=== PATIENT | female | born 1975 | race Caucasian/White ===

== ENCOUNTER → 2018-10-01 15:26 | Outpatient (CLI) | payer OTHER, SELFPAY ==
[2018-10-01 16:14] LABS: Add Manual Diff / Slide Review NO; Basophils Absolute Auto 0 /uL (0-100); Basophils Percent Auto 0.4 % (0-2); Eosinophils Absolute Auto 200 /uL (0-450); Eosinophils Percent Auto 1.8 % (2-4); Hematocrit 43.4 % (36-46); Hemoglobin 14.7 g/dL (12.0-16.0); Lymphocytes Absolute Auto 2900 /uL (1100-4500); Lymphocytes Percent Auto 31.5 % (25-40); Mean Corpuscular HGB Conc 33.8 % (30-36); Mean Corpuscular Hemoglobin 29.9 PG (26-34); Mean Corpuscular Volume 88.6 fL (80-100); Monocytes Absolute Auto 500 /uL (0-900); Monocytes Percent Auto 5.1 % (3-14); Neutrophils Absolute Auto 5600 /uL (1500-7000); Neutrophils Percent Auto 61.2 % (50-75); Platelet Count 280 X10^3/uL (150-400); Red Cell Distribution Width 12.7 % (11.6-14.8); White Blood Cell Count 9.1 X10^3/uL (4.5-11.0)
[2018-10-01 16:24] LABS: Hemoglobin A1C% w Est Avg Glu 5.2 % (4.0-6.0)
[2018-10-01 16:28] LABS: Alanine Aminotransferase 26 IU/L (9-52); Albumin 4.5 g/dL (3.5-5.0); Albumin Globulin Ratio 1.5 (1.0-2.8); Alkaline Phosphatase 45 U/L (38-126); Aspartate Aminotransferase 18 IU/L (14-36); BUN Creatinine Ratio 18.3 (6-22); Bilirubin Total 0.2 mg/dL (0.2-1.3); Blood Urea Nitrogen 11 mg/dL (7-17); Calcium 9.1 mg/dL (8.4-10.2); Carbon Dioxide 26 mmol/L (22-32); Chloride 102 mmol/L (98-107); Cholesterol 180 mg/dL (140-199); Estimated Glomerular Filt Rate > 60.0 mL/min (>60); Glucose 85 mg/dL (70-100); HDL Cholesterol 68 mg/dL (40-60); HEMOLYSIS < 15 (0-50); LDL Cholesterol Calculated 84 mg/dL (<100); Potassium 3.7 mmol/L (3.4-5.1); Sodium 138 mmol/L (137-145); Total Protein 7.5 g/dL (6.3-8.2); Triglycerides 139 mg/dL (35-150)
== END ==
PROVIDERS: PCP Family Medicine; Visit Provider Family Medicine
DX: R00.2 Palpitations (principal)
CPT/HCPCS: 36415; 80053; 80061; 83036; 84443; 85025

== ENCOUNTER → 2018-10-24 07:42 | Outpatient (CLI) | payer OTHER, SELFPAY ==
--- NOTE | 2018-10-24 07:43 | DI.ECHO.S_ITS ---
[facility] +---------+ : : [address] : : : : [id number] : : : : Phone: [phone]+ Echocardiogram Report + + :Name: SOBIA BENZ Study Date: 10/24/2018 Height: 66 in : :[facility] Weight: 155 lb: : Gender: Female BSA: 1.8 m2 : :: 1975 Age: 43 yrs BP: 89/60 mmHg: :Reason For Study: Palpitations : : Performed By: Niya Inman : :Referring: CLAYTON SANTANA : + + Interpretation Summary Borderline right ventricular enlargement. The right atrium is mildly dilated. Low normal LV systolic function. No hemodynamically significant valvular abnormalities. No prior echo for comparison. For accurate measurement of RV size and function, a cardiac MRI is recommended. Procedure: A two-dimensional transthoracic echocardiogram with color flow and Doppler was performed. The study quality was technically excellent. Most of the acoustic windows were suboptimal, but the best imaging was obtained from the subcostal window. The patient was in normal sinus rhythm during the exam. Left Ventricle: The left ventricle is normal in size. There is normal left ventricular wall thickness. The ejection fraction is estimated to be 50-55%. Diastolic function could not be accurately assessed due to contradictory data. Right Ventricle: Borderline right ventricular enlargement. Grossly normal systolic function. The objective data for RV systolic function were not obtained on this study. The apex is questionable. Atria: The left atrial size is normal. The right atrium is mildly dilated. Mitral Valve: The mitral valve leaflets appear borderline thickened, but open well. The mitral valve leaflets appear to open well. There is no mitral valve stenosis. There is trace mitral regurgitation. Aortic Valve: The aortic valve is trileaflet. The aortic valve opens well. No aortic regurgitation is present. Tricuspid Valve: The tricuspid valve is normal in structure and function. There is a trace or physiologic amount of tricuspid regurgitation. Pulmonic Valve: The pulmonic valve is normal in structure and function. There is trace pulmonic regurgitation. Great Vessels: The aortic root is borderline dilated. The ascending aorta is normal in size. The aortic arch is normal in size. The IVC is of normal diameter and collapses greater than 50% with a sniff. This suggests a low right atrial pressure of 3 mm Hg. Pericardium/ Pleura There is no pericardial effusion. There is no pleural effusion. MMode/2D Measurements & Calculations LVIDd: 4.8 cm Ao root diam: 3.8 cm LVIDs: 3.6 cm Aortic Jxn: 2.9 cm FS: 24.3 % asc Aorta Diam: 2.8 cm EPSS: 0.40 cm Ao Arch Diam (Prox Trans): 2.4 cm IVSd: 1.0 cm LVPWd: 0.89 cm LV vee. diameter/BSA (cm/m^2): 2.7 LV sys. diameter/BSA (cm/m^2): 2.0 LA dimension: 2.9 cm RA long axis: 4.9 cm LA A2 area: 12.8 cm2 RA area: 18.3 cm2 LA A4 area: 18.7 cm2 RA vol: 58.6 ml LA length (vol): 4.6 cm RA : 32.6 ml/m2 LA vol: 43.7 ml IVC diam: 1.8 cm LA vol index: 24.3 ml/m2 RVDd major: 5.5 cm RVD1 (basal): 3.8 cm LVAd ap4: 27.4 cm2 RVD2 (mid): 3.6 cm LVAs ap4: 17.4 cm2 LVLs ap4: 6.1 cm Doppler Measurements & Calculations LVOT Max Jatin: 111.5 cm/sec MV E max jatin: 57.6 cm/sec LV V1 max P.0 mmHg MV A max jatin: 58.1 cm/sec LV V1 VTI: 23.3 cm MV E/A: 0.99 Med Peak E' Jtain: 6.2 cm/sec E/E' med: 9.3 Lat Peak E' Jatin: 4.4 cm/sec E/E' lat: 13.0 E/e' average: 11.2 MV dec time: 0.24 sec MV P1/2t: 72.7 msec TR max jatin: 184.9 cm/sec MV P1/2t max jatin: 57.4 cm/sec TR max P.7 mmHg MVA(P1/2t): 3.0 cm2 PA V2 max: 53.0 cm/sec PA V2 mean: 37.1 cm/sec PA mean P.63 mmHg PA Accel Time: 0.15 sec Electronically signed by: Zane Mcfarland M.D. on Reading Physician:10/25/2018 08:02 PM
== END ==
PROVIDERS: PCP Family Medicine; Visit Provider Family Medicine
DX: R00.2 Palpitations (principal); R00.0 Tachycardia, unspecified
CPT/HCPCS: 93306

== ENCOUNTER → 2018-10-29 09:18 | Outpatient (CLI) | payer OTHER, SELFPAY ==
--- NOTE | 2018-11-21 13:27 | P.HOLT.S_ITS ---
Quality Assurance Director Report Referral & Results Date Patient Seen: 10/29/18 Requesting provider: Leonor Pyle Indication: Tachycardia Duration of monitoring (days): 13 Diary information: There were 4 patient diary entries associated with sinus rhythm and PACs There were 4 patient triggered events associated with PACs and sinus rhythm Data: Minimum heart rate identified was 51 beats per minute at 03:15 on 11/05/2018 Maximum sinus heart rate was 179 beats per minute at 09:23 on 11/08/2018 Maximum overall heart rate was 210 beats per minute at 01:40 on 11/07/2018 during a 17 beat run of ventricular tachycardia Less than 1% of identified beats rather ventricular supraventricular in origin Patient had a single run of 17 beats of ventricular tachycardia as above presumably while sleeping given the time of day that it occurred There is also some atrial tachycardia or wandering atrial pacemaker present as well. Impression: The patient with single run of ventricular tachycardia as above. However no other significant dysrhythmias present Clinical correlation suggested. Cardiology consultation probably warranted given the ventricular tachycardia. This is discussed with patient's referring physician in person.
== END ==
PROVIDERS: PCP Family Medicine; Visit Provider Family Medicine
DX: R00.0 Tachycardia, unspecified (principal)
CPT/HCPCS: 0296T; 0298T

== ENCOUNTER → 2018-12-26 11:28 | Outpatient (CLI) | payer OTHER, SELFPAY ==
--- NOTE | 2018-12-26 11:30 | DI.MG.S_ITS ---
BILATERAL DIGITAL SCREENING MAMMOGRAM 3D/2D WITH CAD: 12/26/2018 CLINICAL: Baseline exam. Routine screening. No prior exams were available for comparison. The tissue of both breasts is heterogeneously dense. This may lower the sensitivity of mammography. Current study was also evaluated with a Computer Aided Detection (CAD) system. No significant masses, calcifications, or other findings are seen in either breast. IMPRESSION: NEGATIVE There is no mammographic evidence of malignancy. A 1 year screening mammogram is recommended. This exam was interpreted at Station ID: [id number]. NOTE: For mammograms, a report in lay terms will be sent to the patient. Approximately 15% of breast malignancies will not be visualized mammographically. In the management of a palpable breast mass, a negative mammogram must not discourage biopsy of a clinically suspicious lesion. Electronically Signed By: Pato diaz/chelsy:12/26/2018 18:31:03 letter sent: Normal Exam ACR BI-RADS Category 1: Negative 3341F
== END ==
PROVIDERS: PCP Family Medicine; Visit Provider Family Medicine
DX: Z12.31 Encounter for screening mammogram for malignant neoplasm of breast (principal)
CPT/HCPCS: 77063; 77067

== ENCOUNTER → 2021-03-01 07:14 | Outpatient (CLI) | payer OTHER, SELFPAY ==
[2021-03-01 08:07] LABS: Add Manual Diff / Slide Review NO; Basophils Absolute Auto 0 /uL (0-100); Basophils Percent Auto 0.7 % (0-2); Eosinophils Absolute Auto 300 /uL (0-450); Eosinophils Percent Auto 5.1 % (2-4); Hematocrit 43.9 % (36-46); Hemoglobin 14.6 g/dL (12.0-16.0); Lymphocytes Absolute Auto 1700 /uL (1100-4500); Lymphocytes Percent Auto 33.2 % (25-40); Mean Corpuscular HGB Conc 33.3 % (30-36); Mean Corpuscular Volume 90.1 fL (80-100); Monocytes Absolute Auto 400 /uL (0-900); Monocytes Percent Auto 8.1 % (3-14); Neutrophils Absolute Auto 2700 /uL (1500-7000); Neutrophils Percent Auto 52.9 % (50-75); Platelet Count 265 X10^3/uL (150-400); Red Blood Cell Count 4.87 X10^6/uL (4.0-5.2); Red Cell Distribution Width 12.4 % (11.6-14.8); White Blood Cell Count 5.1 X10^3/uL (4.5-11.0)
[2021-03-01 08:25] LABS: Alanine Aminotransferase 20 IU/L (<35); Albumin 4.1 g/dL (3.5-5.0); Albumin Globulin Ratio 1.5 (1.0-2.8); Alkaline Phosphatase 43 U/L (38-126); Aspartate Aminotransferase 25 IU/L (14-36); BUN Creatinine Ratio 16.9 (6-22); Bilirubin Total 0.5 mg/dL (0.2-1.3); Blood Urea Nitrogen 10 mg/dL (7-17); Calcium 9.1 mg/dL (8.4-10.2); Carbon Dioxide 22 mmol/L (22-32); Chloride 106 mmol/L (98-107); Cholesterol 179 mg/dL (140-199); Estimated Glomerular Filt Rate > 60.0 mL/min (>60); Globulin 2.7 g/dL (1.7-4.1); Glucose 82 mg/dL (70-100); HDL Cholesterol 66 mg/dL (40-60); HEMOLYSIS < 15 (0-50); LDL Cholesterol Calculated 83 mg/dL (<100); Sodium 135 mmol/L (137-145); Total Protein 6.8 g/dL (6.3-8.2); Triglycerides 151 mg/dL (35-150)
== END ==
PROVIDERS: PCP Family Medicine; Referring Provider Registered Nurse; Visit Provider Registered Nurse
DX: Z30.41 Encounter for surveillance of contraceptive pills (principal); Z79.899 Other long term (current) drug therapy; Z82.49 Family history of ischemic heart disease and other diseases of the circulatory system
CPT/HCPCS: 36415; 80053; 80061; 85025

== ENCOUNTER → 2021-05-23 13:32 | Outpatient (CLI) | payer OTHER, SELFPAY ==
--- NOTE | 2021-05-23 13:33 | DI.MG.S_ITS ---
BILATERAL DIGITAL SCREENING MAMMOGRAM 3D/2D WITH CAD: 05/23/2021 CLINICAL: Routine screening. Comparison is made to exam dated: 12/26/2018 [facility] [place]. The tissue of both breasts is heterogeneously dense. This may lower the sensitivity of mammography. Current study was also evaluated with a Computer Aided Detection (CAD) system. No significant masses, calcifications, or other findings are seen in either breast. There has been no significant interval change. IMPRESSION: NEGATIVE There is no mammographic evidence of malignancy. A 1 year screening mammogram is recommended. This exam was interpreted at Station ID: [id number]. NOTE: For mammograms, a report in lay terms will be sent to the patient. Approximately 15% of breast malignancies will not be visualized mammographically. In the management of a palpable breast mass, a negative mammogram must not discourage biopsy of a clinically suspicious lesion. Electronically Signed By: Moira george/chelsy:05/23/2021 14:32:23 letter sent: Normal Exam ACR BI-RADS Category 1: Negative [id number]
== END ==
PROVIDERS: PCP Family Medicine; Referring Provider Family Medicine; Visit Provider Family Medicine
DX: Z12.31 Encounter for screening mammogram for malignant neoplasm of breast (principal)
CPT/HCPCS: 77063; 77067

== ENCOUNTER → 2022-05-14 16:09 | Outpatient (CLI) | payer OTHER, SELFPAY ==
[2022-05-14 18:30] LABS: Add Manual Diff / Slide Review NO; Basophils Absolute Auto 0 /uL (0-100); Basophils Percent Auto 0.3 % (0-2); Eosinophils Absolute Auto 100 /uL (0-450); Eosinophils Percent Auto 1.4 % (2-4); Hematocrit 42.2 % (36-46); Hemoglobin 14.2 g/dL (12.0-16.0); Lymphocytes Absolute Auto 2300 /uL (1100-4500); Lymphocytes Percent Auto 28.8 % (25-40); Mean Corpuscular HGB Conc 33.6 % (30-36); Mean Corpuscular Hemoglobin 30.5 PG (26-34); Mean Corpuscular Volume 90.7 fL (80-100); Monocytes Absolute Auto 400 /uL (0-900); Neutrophils Absolute Auto 5200 /uL (1500-7000); Neutrophils Percent Auto 64.5 % (50-75); Platelet Count 265 X10^3/uL (150-400); Red Blood Cell Count 4.65 X10^6/uL (4.0-5.2)
[2022-05-14 18:47] LABS: Alanine Aminotransferase 21 IU/L (<35); Albumin 4.1 g/dL (3.5-5.0); Albumin Globulin Ratio 1.3 (1.0-2.8); Alkaline Phosphatase 46 U/L (38-126); Aspartate Aminotransferase 25 IU/L (14-36); BUN Creatinine Ratio 13.6 (6-22); Bilirubin Total 0.4 mg/dL (0.2-1.3); Blood Urea Nitrogen 9 mg/dL (7-17); Carbon Dioxide 23 mmol/L (22-32); Chloride 100 mmol/L (98-107); Cholesterol 177 mg/dL (140-199); Estimated Glomerular Filt Rate > 60 mL/min (>60); Globulin 3.1 g/dL (1.7-4.1); Glucose 75 mg/dL (70-100); HDL Cholesterol 69 mg/dL (40-60); HEMOLYSIS < 15 (0-50); LDL Cholesterol Calculated 90 mg/dL (<100); Potassium 3.3 mmol/L (3.4-5.1); Sodium 136 mmol/L (137-145); Total Protein 7.2 g/dL (6.3-8.2); Triglycerides 88 mg/dL (35-150)
[2022-05-14 19:06] LABS: Calcium 8.7 mg/dL (8.4-10.2)
[2022-05-14 19:36] LABS: TSH w/ Reflex to FT4 1.34 uIU/mL (0.47-4.68)
== END ==
PROVIDERS: PCP Family Medicine; Referring Provider Family Medicine; Visit Provider Family Medicine
DX: Z00.00 Encounter for general adult medical examination without abnormal findings (principal); G43.009 Migraine without aura, not intractable, without status migrainosus; D48.5 Neoplasm of uncertain behavior of skin
CPT/HCPCS: 36415; 80053; 80061; 84443; 85025

== ENCOUNTER → 2022-05-24 16:17 | Outpatient (CLI) | payer OTHER, SELFPAY ==
--- NOTE | 2022-05-24 16:22 | DI.MG.S_ITS ---
BILATERAL DIGITAL SCREENING MAMMOGRAM 3D/2D WITH CAD: 05/24/2022 CLINICAL: Routine screening. Comparison is made to exams dated: 05/23/2021 mammogram and 12/26/2018 mammogram - [facility]. Both breasts are heterogeneously dense, which may obscure small masses (category c / 51-75% glandular tissue). Current study was also evaluated with a Computer Aided Detection (CAD) system. No significant masses, calcifications, or other findings are seen in either breast. There has been no significant interval change. IMPRESSION: NEGATIVE There is no mammographic evidence of malignancy. A 1 year screening mammogram is recommended. Based on the Tyrer Cuzick model (a risk assessment model) the patient's lifetime risk is 12.7% and her 10 year risk is 2.5%. According to the ACR, ACS, and NCCN guidelines, an annual breast MRI exam along with mammogram is recommended if the patient's lifetime risk is 20% or greater. This exam was interpreted at Station ID: [id number]. NOTE: For mammograms, a report in lay terms will be sent to the patient. Approximately 15% of breast malignancies will not be visualized mammographically. In the management of a palpable breast mass, a negative mammogram must not discourage biopsy of a clinically suspicious lesion. Electronically Signed By: Robert mtz/chelsy:05/25/2022 08:59:32 letter sent: Normal Exam ACR BI-RADS Category 1: Negative [id number]
== END ==
PROVIDERS: PCP Family Medicine; Referring Provider Family Medicine; Visit Provider Family Medicine
DX: Z12.31 Encounter for screening mammogram for malignant neoplasm of breast (principal)
CPT/HCPCS: 77063; 77067

== ENCOUNTER → 2023-04-05 07:24 | Outpatient (CLI) | payer OTHER, SELFPAY ==
[2023-04-05 08:28] LABS: Alanine Aminotransferase 27 IU/L (<35); Albumin 4.2 g/dL (3.5-5.0); Albumin Globulin Ratio 1.6 (1.0-2.8); Alkaline Phosphatase 37 U/L (38-126); Aspartate Aminotransferase 22 IU/L (14-36); BUN Creatinine Ratio 21.2 (6-22); Bilirubin Total 0.6 mg/dL (0.2-1.3); Blood Urea Nitrogen 14 mg/dL (7-17); Calcium 9.3 mg/dL (8.4-10.2); Carbon Dioxide 26 mmol/L (22-32); Chloride 105 mmol/L (98-107); Estimated Glomerular Filt Rate > 60 mL/min (>60); Globulin 2.6 g/dL (1.7-4.1); Glucose 92 mg/dL (70-100); HEMOLYSIS < 15 (0-50); Sodium 136 mmol/L (137-145); Total Protein 6.8 g/dL (6.3-8.2)
== END ==
PROVIDERS: PCP Family Medicine; Referring Provider Family Medicine; Visit Provider Family Medicine
DX: E87.1 Hypo-osmolality and hyponatremia (principal)
CPT/HCPCS: 36415; 80053

== ENCOUNTER → 2023-05-06 07:10 | Outpatient (CLI) | payer OTHER, SELFPAY ==
[2023-05-06 08:18] LABS: Add Manual Diff / Slide Review NO; Basophils Absolute Auto 0 /uL (0-100); Basophils Percent Auto 0.8 % (0-2); Eosinophils Absolute Auto 100 /uL (0-450); Eosinophils Percent Auto 3.5 % (2-4); Hematocrit 40.7 % (36-46); Hemoglobin 13.8 g/dL (12.0-16.0); Lymphocytes Absolute Auto 1800 /uL (1100-4500); Lymphocytes Percent Auto 43.5 % (25-40); Mean Corpuscular HGB Conc 33.9 % (30-36); Mean Corpuscular Hemoglobin 30.7 PG (26-34); Mean Corpuscular Volume 90.6 fL (80-100); Monocytes Absolute Auto 300 /uL (0-900); Monocytes Percent Auto 8.2 % (3-14); Neutrophils Absolute Auto 1800 /uL (1500-7000); Platelet Count 255 X10^3/uL (150-400); Red Blood Cell Count 4.49 X10^6/uL (4.0-5.2); Red Cell Distribution Width 12.2 % (11.6-14.8)
[2023-05-06 08:48] LABS: Alanine Aminotransferase 23 IU/L (<35); Albumin 4.1 g/dL (3.5-5.0); Albumin Globulin Ratio 1.6 (1.0-2.8); Alkaline Phosphatase 35 U/L (38-126); Aspartate Aminotransferase 22 IU/L (14-36); BUN Creatinine Ratio 30.2 (6-22); Bilirubin Total 0.4 mg/dL (0.2-1.3); Blood Urea Nitrogen 19 mg/dL (7-17); Calcium 9.1 mg/dL (8.4-10.2); Carbon Dioxide 26 mmol/L (22-32); Chloride 105 mmol/L (98-107); Cholesterol 180 mg/dL (140-199); Estimated Glomerular Filt Rate > 60 mL/min (>60); Globulin 2.5 g/dL (1.7-4.1); Glucose 98 mg/dL (70-100); HDL Cholesterol 67 mg/dL (40-60); HEMOLYSIS < 15 (0-50); LDL Cholesterol Calculated 100 mg/dL (<100); Potassium 4.2 mmol/L (3.4-5.1); Sodium 136 mmol/L (137-145); Total Protein 6.6 g/dL (6.3-8.2); Triglycerides 67 mg/dL (35-150)
[2023-05-06 08:58] LABS: TSH w/ Reflex to FT4 2.84 uIU/mL (0.47-4.68)
[2023-05-06 09:28] LABS: Follicle Stimulating Hormone 17.4 mIU/mL
[2023-05-06 09:34] LABS: Vitamin D 25 Hydroxy (D3) 70.9 ng/mL (30.0-100.0)
[2023-05-06 09:35] LABS: Vitamin B12 664 pg/mL (239-931)
[2023-05-09 23:49] LABS: Estrogen 259 pg/mL (.)
[2023-05-16 14:35] LABS: % Free Progesterone 2.8 % (.); Free Progesterone 0.62 ng/dL (.); Progesterone, Serum 22 ng/dL (.)
== END ==
PROVIDERS: PCP Family Medicine; Referring Provider Family Medicine; Visit Provider Family Medicine
DX: E87.1 Hypo-osmolality and hyponatremia (principal); G43.009 Migraine without aura, not intractable, without status migrainosus; R53.83 Other fatigue; G43.109 Migraine with aura, not intractable, without status migrainosus; R87.619 Unspecified abnormal cytological findings in specimens from cervix uteri
CPT/HCPCS: 36415; 80053; 80061; 82306; 82607; 82672; 83001; 84144; 84443; 84999; 85025

== ENCOUNTER → 2023-07-04 12:25 | Outpatient (CLI) | payer OTHER, SELFPAY | PROVIDERS: PCP Family Medicine; Visit Provider Physician Assistant | DX: R30.0 Dysuria (principal) | CPT/HCPCS: 87086; 87210 ==

== ENCOUNTER 2023-09-25 11:54 | Emergency (ER) | payer OTHER, SELFPAY ==
[2023-09-25] VITALS (8 sets, daily range): BP systolic 115–141; BP diastolic 66–95; PULSE 63–77; RESP 12–19; TEMP 37.1; O2SAT 95–98; BMI 25.0
[2023-09-25 12:49] LABS: Add Manual Diff / Slide Review NO; Basophils Absolute Auto 0 /uL (0-100); Basophils Percent Auto 0.7 % (0-2); Eosinophils Absolute Auto 100 /uL (0-450); Eosinophils Percent Auto 1.8 % (2-4); Hematocrit 39.9 % (36-46); Hemoglobin 13.8 g/dL (12.0-16.0); Lymphocytes Absolute Auto 2000 /uL (1100-4500); Lymphocytes Percent Auto 36.3 % (25-40); Mean Corpuscular HGB Conc 34.5 % (30-36); Mean Corpuscular Hemoglobin 30.9 PG (26-34); Mean Corpuscular Volume 89.5 fL (80-100); Monocytes Absolute Auto 400 /uL (0-900); Monocytes Percent Auto 6.7 % (3-14); Neutrophils Absolute Auto 3000 /uL (1500-7000); Neutrophils Percent Auto 54.5 % (50-75); Platelet Count 279 X10^3/uL (150-400); Red Blood Cell Count 4.46 X10^6/uL (4.0-5.2); Red Cell Distribution Width 12.4 % (11.6-14.8); White Blood Cell Count 5.6 X10^3/uL (4.5-11.0)
[2023-09-25 12:54] LABS: Alanine Aminotransferase 16 IU/L (<35); Albumin 3.9 g/dL (3.5-5.0); Albumin Globulin Ratio 1.3 (1.0-2.8); Alkaline Phosphatase 39 U/L (38-126); Aspartate Aminotransferase 23 IU/L (14-36); BUN Creatinine Ratio 32.7 (6-22); Bilirubin Total 0.5 mg/dL (0.2-1.3); Blood Urea Nitrogen 17 mg/dL (7-17); Calcium 8.9 mg/dL (8.4-10.2); Carbon Dioxide 24 mmol/L (22-32); Chloride 107 mmol/L (98-107); Estimated Glomerular Filt Rate > 60 mL/min (>60); Glucose 94 mg/dL (70-100); HEMOLYSIS 20 (0-50); Potassium 3.5 mmol/L (3.4-5.1); Sodium 136 mmol/L (137-145); Total Protein 6.9 g/dL (6.3-8.2)
--- NOTE | 2023-09-25 13:19 | PC.NURSE ---
Pt able to follow commands, smile evenly, states that prisms and floaters have gotten better. Upper and lower extremity strength equal. Able to overcome gravity, scratch test passed, and able to track finger to nose test
--- NOTE | 2023-09-25 13:43 | ED.GENADULT ---
HPI - General Adult General Chief complaint: Eye Problems Stated complaint: sudden change in vision Time Seen by Provider: 09/25/23 13:42 History of Present Illness HPI narrative: 48-year-old woman history of migraines likely perimenopausal who presents with acute onset of visual prisms and acute ocular changes not associated with headache or nausea. She was at work and began noticing light flashes yesterday this lasted for about half an hour. Today she noted prisms in an arc laterally both eyes. Not actually loss of vision, no headache or nausea. Was told to go home from work contacted her doctor who recommended an emergency department evaluation. Symptoms today lasted approximately an hour and a half and by the time my exam she is entirely back to her baseline with no complaints. She has not had recent chest pain, palpitations, abdominal pain diarrhea. With these visual changes she has not had the usual migraine type headache or nausea. There has been no fevers or cough. Related Data Previous Rx's Medication Instructions Recorded ondansetron 4 mg disintegrating 4 mg PO Q8H PRN nausea and 05/02/23 tablet vomiting #20 tabs rizatriptan 5 mg disintegrating See Rx Instructions PO .COMPLEX 05/02/23 tablet #30 tabs metronidazole 500 mg tablet 500 mg PO BID #14 tabs 07/04/23 norgestimate 0.25 mg-ethinyl 1 tab PO DAILY #84 tabs 08/15/23 estradiol 35 mcg tablet Allergies Allergy/AdvReac Type Severity Reaction Status Date / Time Opioids - Morphine Analogues AdvReac Severe Vomiting Verified 07/04/23 12:28 Review of Systems Review of Systems Narrative: Pertinent positive and negative findings as per HPI Patient History Medical History (Updated 09/25/23 @ 15:26 by Gaby Jolley MD) Ocular migraine Migraine headache with aura Oral contraceptive use Medication management Cervical cancer screening AVNRT (AV colleen re-entry tachycardia) Abnormal Pap smear of cervix Family History Mother Cancer Mother Cancer Social History Smoking Status: Never smoker alcohol intake: current (~2 drinks per weekend ) substance use type: does not use Smoking Status: Never smoker alcohol intake frequency: a few times a month Substance Use Type: does not use Exam Initial Vital Signs Initial Vital Signs: Vital Signs Temperature 98.8 F 09/25/23 11:57 Pulse Rate 77 09/25/23 11:57 Respiratory Rate 18 09/25/23 11:57 Blood Pressure 141/95 H 09/25/23 11:57 Pulse Oximetry 98 09/25/23 11:57 Oxygen Delivery Method Room Air 09/25/23 11:57 General: Alert appropriate in no acute distress Respiratory: Able to speak in full sentences, no obvious respiratory distress, no wheezing or rhonchi Cardiac exam is entirely unremarkable Skin: No obvious rashes, warm and dry Neurologic: Grossly intact no obvious asymmetries or abnormalities. No headache, no acute visual changes. Pupils are equal and reactive to light and accommodation Psych: appropriate insight and affect, cooperative Course Orders Ordered: ED Orders 09/25/23 12:33 CMP [Comprehensive Metabolic Panel] Stat Complete Blood Count AUTO DIFF Stat Vital Signs Vital signs: Vital Signs - 8 hr 09/25/23 11:57 09/25/23 12:22 09/25/23 12:22 Temperature 98.8 F Pulse Rate 77 74 Respiratory Rate 18 14 Blood Pressure 141/95 H 125/84 Pulse Oximetry 98 98 Oxygen Delivery Method Room Air 09/25/23 12:30 09/25/23 12:30 Temperature Pulse Rate 74 Respiratory Rate 12 Blood Pressure 134/88 Pulse Oximetry 95 Oxygen Delivery Method Medical Decision Making Lab Data 09/25/23 12:33 09/25/23 12:33 Labs: Lab Results 09/25/23 Range/Units 12:33 WBC 5.6 (4.5-11.0) X10^3/uL RBC 4.46 (4.0-5.2) X10^6/uL Hgb 13.8 (12.0-16.0) g/dL Hct 39.9 (36-46) % MCV 89.5 (80-100) fL MCH 30.9 (26-34) PG MCHC 34.5 (30-36) % RDW 12.4 (11.6-14.8) % Plt Count 279 (150-400) X10^3/uL Neut % (Auto) 54.5 (50-75) % Lymph % (Auto) 36.3 (25-40) % [place] % (Auto) 6.7 (3-14) % Eos % (Auto) 1.8 L (2-4) % Baso % (Auto) 0.7 (0-2) % Neut # (Auto) 3000 (6060-2273) /uL Lymph # (Auto) 2000 (3746-8589) /uL [place] # (Auto) 400 (0-900) /uL Eos # (Auto) 100 (0-450) /uL Baso # (Auto) 0 (0-100) /uL Sodium 136 L (137-145) mmol/L Potassium 3.5 (3.4-5.1) mmol/L Chloride 107 (98-107) mmol/L Carbon Dioxide 24 (22-32) mmol/L BUN 17 (7-17) mg/dL Creatinine 0.52 (0.52-1.04) mg/dL Estimated GFR > 60 (>60) mL/min BUN/Creatinine Ratio 32.7 H (6-22) Glucose 94 (70-100) mg/dL Calcium 8.9 (8.4-10.2) mg/dL Total Bilirubin 0.5 (0.2-1.3) mg/dL AST 23 (14-36) IU/L ALT 16 (<35) IU/L Alkaline Phosphatase 39 (38-126) U/L Total Protein 6.9 (6.3-8.2) g/dL Albumin 3.9 (3.5-5.0) g/dL Globulin 3.0 (1.7-4.1) g/dL Albumin/Globulin Ratio 1.3 (1.0-2.8) MDM Narrative Medical decision making narrative: 48-year-old woman presents with 2 discrete episodes of alf like vision changes. The 1st episode was yesterday lasted approximately 30 minutes. An additional episode today lasting approximately an hour. Neither of these were associated with headache, nausea, visual loss, photophobia or increased sensitivity to smells. She does have a history of migraine and describes this as entirely different. Differential includes ocular migraine, regular migraine, intra-ocular pressure, retinal detachment, stroke. Lab tests today do not suggest infection. Exam is entirely reassuring and she has no symptoms at the time of my exam. We reviewed samples of what other people have described the visual disturbance associated with ocular migraine and she feels that what she experienced is well with in this realm of findings. We talked about the use of Excedrin if the symptoms last long enough to warrant that. Reassurance is given. Questions are answered and she is safe for discharge Discharge Plan Departure Patient Disposition: Home Clinical Impression: Ocular migraine Activity Restrictions/Additional Instructions: Thank you for coming in today Your symptoms, description, the absence of pain in the fairly rapid resolution of symptoms are all very consistent with ocular migraine. This type of migraine typically does not have the pain, nausea, light sensitivity as a standard migraine and typically does not last as long. Usually people will describe light prisms or changes peripherally that resolve over 30 minutes to 4 hours. Your description in your exam do not suggest infection, stroke, retinal abnormalities or other vision threatening concerns that would require urgent intervention You might consider trying Excedrin in the next time you have 1 of these episodes. It may shorten the time of the ocular change from an hour and a half to 20-30 minutes. If you find that you are having numbness, tingling, actual vision loss or other changes you do need to be re-evaluated Prescriptions: No Action metronidazole 500 mg tablet 500 mg PO BID Qty: 14 0RF norgestimate-ethinyl estradiol 0.25-35 mg-mcg tablet 1 tab PO DAILY Qty: 84 0RF Rx Instructions: Take daily around the same time every day rizatriptan 5 mg tablet,disintegrating See Rx Instructions PO .COMPLEX Qty: 30 1RF Rx Instructions: take 1 tablet at onset of headache; if no relief, may repeat 1 tablet after at least 2 hrs PO ondansetron 4 mg tablet,disintegrating 4 mg PO Q8H PRN (Reason: nausea and vomiting) Qty: 20 1RF Referrals: Perez Corrigan MD [Primary Care Provider] - Stand Alone Forms: Patient Portal/API
== END 2023-09-25 15:30 | disposition home or self-care (01) ==
PROVIDERS: Emergency Provider Emergency Medicine; PCP Family Medicine
DX: G43.B0 Ophthalmoplegic migraine, not intractable (principal)
CPT/HCPCS: 36415; 80053; 81003; 81025; 85025; 99283

== ENCOUNTER → 2024-04-02 16:48 | Outpatient (CLI) | payer OTHER, SELFPAY ==
--- NOTE | 2024-04-02 16:49 | DI.MG.S_ITS ---
BILATERAL DIGITAL SCREENING MAMMOGRAM 3D/2D WITH CAD: 04/02/2024 CLINICAL: Routine screening. Comparison is made to exams dated: 05/24/2022 mammogram, 05/23/2021 mammogram, and 12/26/2018 mammogram - [facility]. The breasts are heterogeneously dense, which may obscure small masses (category c / 51-75% glandular tissue). Current study was also evaluated with a Computer Aided Detection (CAD) system. No significant masses, calcifications, or other findings are seen in either breast. There has been no significant interval change. IMPRESSION: NEGATIVE There is no mammographic evidence of malignancy. A 1 year screening mammogram is recommended. Based on the Tyrer Cuzick model (a risk assessment model) the patient's lifetime risk is 13.4% and her 10 year risk is 2.7%. According to the ACR, ACS, and NCCN guidelines, an annual breast MRI exam along with mammogram is recommended if the patient's lifetime risk is 20% or greater. This exam was interpreted at Station ID: [id number]. NOTE: For mammograms, a report in lay terms will be sent to the patient. Approximately 15% of breast malignancies will not be visualized mammographically. In the management of a palpable breast mass, a negative mammogram must not discourage biopsy of a clinically suspicious lesion. Electronically Signed By: Herbert perez/chelsy:04/03/2024 12:30:49 letter sent: Normal Exam ACR BI-RADS Category 1: Negative
== END ==
PROVIDERS: PCP Family Medicine; Referring Provider Family Medicine; Visit Provider Family Medicine
DX: Z12.31 Encounter for screening mammogram for malignant neoplasm of breast (principal); R92.333 Mammographic heterogeneous density, bilateral breasts
CPT/HCPCS: 77063; 77067

== ENCOUNTER → 2024-05-22 07:45 | Outpatient (CLI) | payer OTHER, SELFPAY ==
[2024-05-22 08:26] LABS: Add Manual Diff / Slide Review NO; Basophils Absolute Auto 0 /uL (0-100); Basophils Percent Auto 0.9 % (0-2); Eosinophils Absolute Auto 200 /uL (0-450); Eosinophils Percent Auto 3.2 % (2-4); Hematocrit 43.6 % (36-46); Hemoglobin 14.7 g/dL (12.0-16.0); Lymphocytes Absolute Auto 1800 /uL (1100-4500); Lymphocytes Percent Auto 37.8 % (25-40); Mean Corpuscular HGB Conc 33.7 % (30-36); Mean Corpuscular Hemoglobin 30.3 PG (26-34); Mean Corpuscular Volume 89.8 fL (80-100); Monocytes Absolute Auto 400 /uL (0-900); Neutrophils Absolute Auto 2300 /uL (1500-7000); Neutrophils Percent Auto 49.1 % (50-75); Platelet Count 254 X10^3/uL (150-400); Red Blood Cell Count 4.85 X10^6/uL (4.0-5.2); Red Cell Distribution Width 13.4 % (11.6-14.8); White Blood Cell Count 4.7 X10^3/uL (4.5-11.0)
[2024-05-22 08:39] LABS: Alanine Aminotransferase 29 IU/L (<35); Albumin 4.2 g/dL (3.5-5.0); Albumin Globulin Ratio 1.7 (1.0-2.8); Alkaline Phosphatase 43 U/L (38-126); Aspartate Aminotransferase 26 IU/L (14-36); Bilirubin Total 0.6 mg/dL (0.2-1.3); Blood Urea Nitrogen 17 mg/dL (7-17); Calcium 9.3 mg/dL (8.4-10.2); Carbon Dioxide 22 mmol/L (22-32); Chloride 107 mmol/L (98-107); Cholesterol 178 mg/dL (140-199); Estimated Glomerular Filt Rate > 60 mL/min (>60); Globulin 2.5 g/dL (1.7-4.1); Glucose 94 mg/dL (70-100); HDL Cholesterol 73 mg/dL (40-60); HEMOLYSIS < 15 (0-50); LDL Cholesterol Calculated 91 mg/dL (<100); Potassium 4.1 mmol/L (3.4-5.1); Sodium 137 mmol/L (137-145); Total Protein 6.7 g/dL (6.3-8.2); Triglycerides 70 mg/dL (35-150)
[2024-05-22 08:54] LABS: Vitamin D 25 Hydroxy (D3) 70.7 ng/mL (30.0-100.0)
[2024-05-22 09:07] LABS: TSH w/ Reflex to FT4 1.98 uIU/mL (0.47-4.68)
== END ==
LOC: LAB 07:45
PROVIDERS: PCP Family Medicine; Referring Provider Family Medicine; Visit Provider Family Medicine
DX: E87.1 Hypo-osmolality and hyponatremia (principal); G43.109 Migraine with aura, not intractable, without status migrainosus; R53.82 Chronic fatigue, unspecified
CPT/HCPCS: 36415; 80053; 80061; 82306; 84443; 85025

== ENCOUNTER 2024-07-13 13:59 | Emergency (ER) | payer BC, SELFPAY ==
[2024-07-13 14:18] VITALS: BP 138/60; PULSE 88; RESP 12; TEMP 37; O2SAT 96; BMI 23.5
[2024-07-13 15:21] LABS: Add Manual Diff / Slide Review NO; Basophils Absolute Auto 0 /uL (0-100); Basophils Percent Auto 0.6 % (0-2); Eosinophils Absolute Auto 100 /uL (0-450); Eosinophils Percent Auto 2.3 % (2-4); Hematocrit 42.2 % (36-46); Hemoglobin 14.2 g/dL (12.0-16.0); Lymphocytes Absolute Auto 1800 /uL (1100-4500); Lymphocytes Percent Auto 34.3 % (25-40); Mean Corpuscular HGB Conc 33.6 % (30-36); Mean Corpuscular Hemoglobin 30.1 PG (26-34); Mean Corpuscular Volume 89.5 fL (80-100); Monocytes Absolute Auto 400 /uL (0-900); Monocytes Percent Auto 6.6 % (3-14); Neutrophils Absolute Auto 3000 /uL (1500-7000); Neutrophils Percent Auto 56.2 % (50-75); Platelet Count 302 X10^3/uL (150-400); Red Blood Cell Count 4.71 X10^6/uL (4.0-5.2); Red Cell Distribution Width 12.6 % (11.6-14.8); White Blood Cell Count 5.4 X10^3/uL (4.5-11.0)
--- NOTE | 2024-07-13 15:35 | DI.US.S_ITS ---
PROCEDURE: US PELVIC COMPLETE INDICATIONS: DUB TECHNIQUE: Real-time scanning was performed of the pelvic organs, with image documentation. Additional endovaginal scanning was necessary due to incomplete visualization of the adnexal and endometrial structures by transabdominal scanning. COMPARISON: None. FINDINGS: Uterus: Uterus is retroverted and normal in size at 7.7 x 7.8 x 8.1 cm. The myometrium is heterogeneous. The endometrium measures 7 mm combined thickness. Right posterior intramural fibroid measuring 7.1 x 4.4 x 4.7 cm. Ovaries: The right ovary is not seen. The left ovary measures 2.8 x 1.6 x 2.2 cm, with a calculated ovarian volume of 5.1 cc. Left ovary is normal in appearance. Right adnexal septated cyst measuring 3.9 x 3.5 x 4.1 cm. Other: No pathologic free abdominal or pelvic fluid. IMPRESSION: Right ovary is not seen. Right adnexal septated cyst measuring up to 4.1 cm is present. Recommend short-term follow-up ultrasound in 6-12 weeks. Large uterine fibroid measuring up to 7.1 cm. We strive to produce accurate, complete, and clear reports of imaging services. To assist us in improving patient care, this report was composed using standard report templates and voice recognition software. Therefore, it may contain abnormal punctuation, insertions and/or omissions. Occasional wrong-word or sound-alike substitutions may occur. Though we review the report and make efforts to correct it, we do recommend that the report be read carefully in proper context to recognize any text inaccuracies. Dictated by: Jet Prieto M.D. on 07/13/2024 at 16:24 Approved by: Jet Prieto M.D. on 07/13/2024 at 16:28
[2024-07-13 15:38] LABS: BUN Creatinine Ratio 24.6 (6-22); Blood Urea Nitrogen 16 mg/dL (7-17); Carbon Dioxide 23 mmol/L (22-32); Chloride 105 mmol/L (98-107); Estimated Glomerular Filt Rate > 60 mL/min (>60); Glucose 101 mg/dL (70-100); HEMOLYSIS < 15 (0-50); Potassium 3.9 mmol/L (3.4-5.1); Sodium 136 mmol/L (137-145)
[2024-07-13 15:41] LABS: Prothrombin Time 11.4 SECONDS (9.4-12.5)
[2024-07-13 15:44] LABS: PTT Partial Thromboplastin Tim 31 SECONDS (25.1-36.5)
--- NOTE | 2024-07-13 15:52 | ED_ITS ---
HPI - Female Genitourinary <Merry Brennan PA-C - Last Filed: 07/13/24 17:46> General Chief complaint: Vaginal Bleeding Stated complaint: heavy vaginal bleeding, dizziness Time Seen by Provider: 07/13/24 15:32 Source: patient Mode of arrival: Ambulatory History of Present Illness HPI Narrative: 49-year-old female presents to the ED with abnormal, heavy vaginal bleeding. Patient states that this is her 2nd period in 16 days, her bleeding was pretty heavy last night and she went through 6-7 tampons. Patient said that she started feeling anxious this morning as well as dizzy. Patient went off of control 9 months ago and has been having regular periods since then. Patient endorses some pelvic cramping as well. No fever, chills, nausea, vomiting. Related Data Previous Rx's Medication Instructions Recorded ondansetron 4 mg disintegrating 4 mg PO Q8H PRN nausea and 05/02/23 tablet vomiting #20 tabs rizatriptan 5 mg disintegrating See Rx Instructions PO .COMPLEX 05/02/23 tablet #30 tabs Allergies Allergy/AdvReac Type Severity Reaction Status Date / Time Opioids - Morphine Analogues AdvReac Severe Vomiting Verified 07/13/24 14:27 Review of Systems <Merry Brennan PA-C - Last Filed: 07/13/24 17:46> Constitutional Constitutional: Denies chills, Denies fatigue, Denies fever(s), Denies frequent falls, Denies lethargy and Denies weakness Eyes Eyes: Denies change in vision, Denies eye discharge, Denies irritation and Denies loss of vision ENT Ears, Nose, Mouth, and Throat: Denies change in voice, Denies dizziness, Denies neck pain, Denies sore throat and Denies throat swelling Cardiovascular Cardiovascular: Denies chest pain, Denies irregular heart rhythm, Denies lightheadedness, Denies palpitations, Denies dyspnea, Denies dyspnea on exertion and Denies orthopnea Respiratory Respiratory: Denies cough, Denies dyspnea, Denies dyspnea on exertion and Denies wheezing Gastrointestinal Gastrointestinal: Denies abdominal pain, Denies change in bowel habits, Denies diarrhea, Denies nausea and Denies vomiting Genitourinary Genitourinary: Reports abnormal vaginal bleeding, Reports metrorrhagia and Reports pelvic pain Musculoskeletal Musculoskeletal: Denies neck pain and Denies numbness Integumentary/Breasts Skin/Breast: Denies pruritus, Denies erythema, Denies rash and Denies wounds Neurologic Neurologic: Denies behavioral changes, Denies confusion, Denies dizziness, Denies frequent falls, Denies loss of vision, Denies numbness and Denies weakness Psychiatric Psychiatric: Denies anxiety, Denies behavioral changes, Denies confusion, Denies depression, Denies homicidal ideation and Denies suicidal ideation Endocrine Endocrine: Denies fatigue, Denies flushing and Denies palpitations Hematologic/Lymphatic Hematologic/Lymphatic: Denies easy bruising Allergic/Immunologic Allergic/Immunologic: Denies urticaria, Denies throat swelling and Denies wheezing Patient History <Merry Brennan PA-C - Last Filed: 07/13/24 17:46> Medical History Ocular migraine Migraine headache with aura Oral contraceptive use Medication management Cervical cancer screening AVNRT (AV colleen re-entry tachycardia) Abnormal Pap smear of cervix Family History Mother Cancer Mother Cancer Exam <Merry Brennan PA-C - Last Filed: 07/13/24 17:46> Narrative Exam Narrative: Const General:?cooperative, healthy appearing and comfortable [facility] Head:?normal to inspection Ears:?hearing grossly normal bilaterally Nose:?external nose normal Face and sinus:?normal facial exam and sinuses nontender Mouth:?oral mucosae normal Throat:?posterior oropharynx normal Eyes General:?appearance normal, both eyes and all related structures Neck Neck:?normal visual inspection and no lymphadenopathy noted Resp Effort & Inspection:?normal respiratory effort Auscultation:?clear to auscultation bilaterally Cardio Rate:?regular rate Rhythm:?regular rhythm GI Abdomen is soft, nondistended, nontender to palpation. Neuro General:?patient alert, patient awake and patient oriented x3 Initial Vital Signs Initial Vital Signs: Vital Signs Temperature 98.6 F 07/13/24 14:18 Pulse Rate 88 07/13/24 14:18 Respiratory Rate 12 07/13/24 14:18 Blood Pressure 138/60 07/13/24 14:18 Pulse Oximetry 96 07/13/24 14:18 Oxygen Delivery Method Room Air 07/13/24 14:18 <Madina Soto DO - Last Filed: 07/13/24 18:56> Initial Vital Signs Initial Vital Signs: Vital Signs Temperature 98.6 F 07/13/24 14:18 Pulse Rate 88 07/13/24 14:18 Respiratory Rate 12 07/13/24 14:18 Blood Pressure 138/60 07/13/24 14:18 Pulse Oximetry 96 07/13/24 14:18 Oxygen Delivery Method Room Air 07/13/24 14:18 Course <Merry Brennan PA-C - Last Filed: 07/13/24 17:46> Orders Ordered: ED Orders 07/13/24 15:05 Basic Metabolic Panel Stat Complete Blood Count AUTO DIFF Stat PT [Prothrombin Time INR] Stat PTT [PTT Partial Thromboplastin Skip] Stat Type and Screen Stat 07/13/24 15:35 US pelvic complete Stat Vital Signs Vital signs: Vital Signs - 8 hr 07/13/24 14:18 07/13/24 16:58 Temperature 98.6 F 97.9 F Pulse Rate 88 60 Respiratory Rate 12 16 Blood Pressure 138/60 133/86 Pulse Oximetry 96 98 Oxygen Delivery Method Room Air Room Air <Madina Soto DO - Last Filed: 07/13/24 18:56> Orders Ordered: ED Orders 07/13/24 15:05 Basic Metabolic Panel Stat Complete Blood Count AUTO DIFF Stat PT [Prothrombin Time INR] Stat PTT [PTT Partial Thromboplastin Skip] Stat Type and Screen Stat 07/13/24 15:35 US pelvic complete Stat Vital Signs Vital signs: Vital Signs - 8 hr 07/13/24 14:18 07/13/24 16:58 Temperature 98.6 F 97.9 F Pulse Rate 88 60 Respiratory Rate 12 16 Blood Pressure 138/60 133/86 Pulse Oximetry 96 98 Oxygen Delivery Method Room Air Room Air MDM - Female Genitourinary <KIRBY Escalante Last Filed: 07/13/24 17:46> Lab Data 07/13/24 15:05 07/13/24 15:05 Labs: Lab Results 07/13/24 Range/Units 15:05 WBC 5.4 (4.5-11.0) X10^3/uL RBC 4.71 (4.0-5.2) X10^6/uL Hgb 14.2 (12.0-16.0) g/dL Hct 42.2 (36-46) % MCV 89.5 (80-100) fL MCH 30.1 (26-34) PG MCHC 33.6 (30-36) % RDW 12.6 (11.6-14.8) % Plt Count 302 (150-400) X10^3/uL Neut % (Auto) 56.2 (50-75) % Lymph % (Auto) 34.3 (25-40) % [place] % (Auto) 6.6 (3-14) % Eos % (Auto) 2.3 (2-4) % Baso % (Auto) 0.6 (0-2) % Neut # (Auto) 3000 (9762-5555) /uL Lymph # (Auto) 1800 (9058-6343) /uL [place]ett # (Auto) 400 (0-900) /uL Eos # (Auto) 100 (0-450) /uL Baso # (Auto) 0 (0-100) /uL PT 11.4 (9.4-12.5) SECONDS INR 1.0 (0.9-1.3) APTT 31 (25.1-36.5) SECONDS Sodium 136 L (137-145) mmol/L Potassium 3.9 (3.4-5.1) mmol/L Chloride 105 (98-107) mmol/L Carbon Dioxide 23 (22-32) mmol/L BUN 16 (7-17) mg/dL Creatinine 0.65 (0.52-1.04) mg/dL Estimated GFR > 60 (>60) mL/min BUN/Creatinine Ratio 24.6 H (6-22) Glucose 101 H (70-100) mg/dL Calcium 9.0 (8.4-10.2) mg/dL Blood Type A Positive Antibody Screen Negative Point of Care Testing Test Results Negative Urine Dip Bedside Urine Glucose Negative Bedside Urine Bilirubin - Negative Bedside Urine Ketone ++ 40 Urine Specific [place] 1.010 Bedside Urine Occult Blood - Negative Bedside Urine pH 6.0 Bedside Urine Protein - Negative Bedside Urine Urobilinogen - Negative Bedside Urine Nitrite - Negative Bedside Urine Leukocytes - Negative Esterase MDM Narrative Medical decision making narrative: 49-year-old female presents to the ED with abnormal, heavy vaginal bleeding. Ultrasound was obtained which shows a large uterine fibroid measuring up to 7.1 cm. There is also a right adnexal septated cyst measuring up to 4.1 cm. Right ovary was not identified. The left ovary is normal. No pathologic free abdominal or pelvic fluid. Labs are within normal limits. Urine hCG negative. Urine dip negative for infection. Patient states that her vaginal bleeding has reduced since she came into the ED. discussed findings with patient. Recommend that patient follow-up with OBGYN as soon as possible for further evaluation of the cyst and fibroids. ED return precautions were discussed with patient. Patient verbalized understanding. Medical records reviewed: Yes <Madina Soto DO - Last Filed: 07/13/24 18:56> Lab Data Labs: Lab Results 07/13/24 Range/Units 15:05 WBC 5.4 (4.5-11.0) X10^3/uL RBC 4.71 (4.0-5.2) X10^6/uL Hgb 14.2 (12.0-16.0) g/dL Hct 42.2 (36-46) % MCV 89.5 (80-100) fL MCH 30.1 (26-34) PG MCHC 33.6 (30-36) % RDW 12.6 (11.6-14.8) % Plt Count 302 (150-400) X10^3/uL Neut % (Auto) 56.2 (50-75) % Lymph % (Auto) 34.3 (25-40) % [place] % (Auto) 6.6 (3-14) % Eos % (Auto) 2.3 (2-4) % Baso % (Auto) 0.6 (0-2) % Neut # (Auto) 3000 (8506-4676) /uL Lymph # (Auto) 1800 (0037-6364) /uL [place] # (Auto) 400 (0-900) /uL Eos # (Auto) 100 (0-450) /uL Baso # (Auto) 0 (0-100) /uL PT 11.4 (9.4-12.5) SECONDS INR 1.0 (0.9-1.3) APTT 31 (25.1-36.5) SECONDS Sodium 136 L (137-145) mmol/L Potassium 3.9 (3.4-5.1) mmol/L Chloride 105 (98-107) mmol/L Carbon Dioxide 23 (22-32) mmol/L BUN 16 (7-17) mg/dL Creatinine 0.65 (0.52-1.04) mg/dL Estimated GFR > 60 (>60) mL/min BUN/Creatinine Ratio 24.6 H (6-22) Glucose 101 H (70-100) mg/dL Calcium 9.0 (8.4-10.2) mg/dL Blood Type A Positive Antibody Screen Negative Point of Care Testing Test Results Negative Urine Dip Bedside Urine Glucose Negative Bedside Urine Bilirubin - Negative Bedside Urine Ketone ++ 40 Urine Specific [place] 1.010 Bedside Urine Occult Blood - Negative Bedside Urine pH 6.0 Bedside Urine Protein - Negative Bedside Urine Urobilinogen - Negative Bedside Urine Nitrite - Negative Bedside Urine Leukocytes - Negative Esterase Discharge Plan Departure Patient Disposition: Home Clinical Impression: Vaginal bleeding Instructions: DI for Vaginal Bleeding Activity Restrictions/Additional Instructions: You were evaluated in the ED today for heavier than normal vaginal bleeding. Your labs were normal. The ultrasound shows a right adnexal septated cyst and a large uterine fibroid. It is very common for women in the perimenopausal to menopausal phases to have fibroids. These fibroids are also prone to heavy bleeding which could be contributing to your symptoms. It is recommended that you follow-up with an OBGYN as soon as possible for further evaluation and treatment. You may make an appointment with [facility] by calling [phone]. Please continue to monitor the bleeding and return to the ED if you have worsening symptoms. Prescriptions: No Action rizatriptan 5 mg tablet,disintegrating See Rx Instructions PO .COMPLEX Qty: 30 1RF Rx Instructions: take 1 tablet at onset of headache; if no relief, may repeat 1 tablet after at least 2 hrs PO ondansetron 4 mg tablet,disintegrating 4 mg PO Q8H PRN (Reason: nausea and vomiting) Qty: 20 1RF Referrals: Perez Corrigan MD [Primary Care Provider] - Stand Alone Forms: Patient Portal/API/Survey ED Sign-out <Madina Soto DO - Last Filed: 07/13/24 18:56> Cosign ED Attending Cosmilesature Attestation: I was immediately available in the department for consultation.
[2024-07-13 16:58] VITALS: BP 133/86; PULSE 60; RESP 16; TEMP 36.6; O2SAT 98
== END 2024-07-13 16:58 | disposition home or self-care (01) ==
PROVIDERS: Emergency Medicine; Emergency Provider Student in an Organized Health Care Education/Training Program; PCP Family Medicine
DX: N93.8 Other specified abnormal uterine and vaginal bleeding (principal); D25.9 Leiomyoma of uterus, unspecified; N94.89 Other specified conditions associated with female genital organs and menstrual cycle
CPT/HCPCS: 36415; 76830; 76856; 80048; 81003; 81025; 85025; 85610; 85730; 86850; 86900; 86901; 99283; 99284

== ENCOUNTER → 2024-09-14 08:29 | Outpatient (CLI) | payer BC, SELFPAY ==
--- NOTE | 2024-09-14 08:30 | DI.US.S_ITS ---
PROCEDURE: US PELVIC COMPLETE INDICATIONS: Follow-up for resolution of cyst and growth of fibroid TECHNIQUE: Real-time scanning was performed of the pelvic organs, with image documentation. Additional endovaginal scanning was necessary due to incomplete visualization of the adnexal and endometrial structures by transabdominal scanning. COMPARISON: [facility], , US PELVIC COMPLETE, 07/13/2024, 15:47. FINDINGS: Uterus: Uterus is anteverted and normal in size at 8.0 x 6.9 x 9.4 cm. The myometrium is homogeneous. The endometrium measures 6.5 mm combined thickness. No significant change in 6.2 cm posterior intramural fibroid compared to prior exam with size differences likely technically related. Ovaries: The right ovary measures 1.2 x 2.2 x 1.0 cm, with a calculated ovarian volume of 1.4 cc. The left ovary measures 3.3 x 5.1 x 2.8 cm, with a calculated ovarian volume of 25 cc. Simple left ovarian cyst redemonstrated not significant changed measuring up to 3.8 cm in maximal diameter. No septation seen on today's exam.. Less than 12 follicles can be seen in each ovary. No adnexal masses are seen. Other: No pathologic free abdominal or pelvic fluid. IMPRESSION: 1. No significant change in size of simple left adnexal cyst, likely ovarian measuring up to 3.8 cm. 2. No significant change in posterior intramural fibroid measuring up to 6.2 cm. We strive to produce accurate, complete, and clear reports of imaging services. To assist us in improving patient care, this report was composed using standard report templates and voice recognition software. Therefore, it may contain abnormal punctuation, insertions and/or omissions. Occasional wrong-word or sound-alike substitutions may occur. Though we review the report and make efforts to correct it, we do recommend that the report be read carefully in proper context to recognize any text inaccuracies. Dictated by: Homero WATSON Interpreted: Herbert Heller MD on 09/14/2024 at 9:10 Transcribed by: FELIPE on 09/14/2024 at 9:14 Approved by: Herbert Heller M.D. on 09/15/2024 at 13:18
== END ==
PROVIDERS: PCP Family Medicine; Referring Provider Specialist; Visit Provider Specialist
DX: N83.292 Other ovarian cyst, left side (principal); D25.9 Leiomyoma of uterus, unspecified
CPT/HCPCS: 76830; 76856

== ENCOUNTER → 2024-09-29 17:47 | Outpatient (CLI) | payer BC, SELFPAY ==
[2024-09-29 18:24] LABS: HEMOLYSIS < 15 (0-50); Iron 56 ug/dL (37-170)
[2024-09-29 18:35] LABS: Percent Iron Saturation 16 % (15-50); Total Iron Binding Capacity 341 ug/dL (265-497); Transferrin 289 mg/dL (206-381)
[2024-09-29 19:01] LABS: Ferritin 9 ng/mL (6-137)
== END ==
PROVIDERS: PCP Family Medicine; Referring Provider Naturopath; Visit Provider Naturopath
DX: E61.1 Iron deficiency (principal); N93.8 Other specified abnormal uterine and vaginal bleeding
CPT/HCPCS: 36415; 82728; 83540; 83550

== ENCOUNTER 2024-12-28 06:26 | Day surgery (SDC) | payer BC, SELFPAY ==
[2024-12-16 14:05] VITALS: BMI 23.5
[2024-12-28] VITALS (8 sets, daily range): BP systolic 81–124; BP diastolic 40–85; PULSE 72–86; RESP 12–17; TEMP 36.2–36.8; O2SAT 93–98; BMI 24.4
--- NOTE | 2024-12-28 | PATH_ITS ---
[facility] Accession Number: [id number] No. of containers..01 Tissue . 01 Material submitted: . uterus - UTERUS, BILATERAL FALLOPIAN TUBES, LEFT ADENEXAL CYST . 01 Diagnosis: UTERUS WITH BILATERAL FALLOPIAN TUBES AND LEFT ADNEXAL CYST, HYSTERECTOMY WITH BILATERAL SALPINGECTOMY: Uterus with: Secretory endometrium. Adenomyosis. Fragmented leiomyoma(s). 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 No atypia or malignancy is identified. [facility] 01/04/2025 1849 Local . 01 Electronically signed: . Davis Bradley MD, Dermatopathologist NPI- [id number] . 01 Gross description: . Received in formalin with two identifiers and uterus, bilateral tubes, L adnexal cyst, is a fragmented uterus (210 grams, 15.5 x 15.2 x 4.3 cm) with presumed left fimbriated fallopian tube (6.0 x 0.6 cm) and presumed right fimbriated fallopian tube (4.5 x 0.7 cm), with no cervix or additional adnexa identified. . The serosa is rogers and wrinkled with no lesions identified. The presumed endometrium is rogers to brown and velvety averaging 0.1 cm thick. The myometrium is rogers and trabecular with fragments of white, whorled, rubbery tissue measuring up to 14.2 cm in greatest dimension. No hemorrhage or necrosis is identified. . The presumed left fallopian tube has rogers serosa with numerous cystic structures ranging from 0.1 cm in greatest dimension to 3.7 x 3.5 x 2.2 cm. The external surface is inked blue and sectioning reveals the largest cyst to be multiloculated and contain rogers serous fluid with thin wells with no excrescences identified. The lumen of the tube is stellate and unremarkable. . The presumed right tube has violaceous mid serosa with multiple cysts ranging from 0.1 to 0.2 cm in greatest dimension. The lumen is stellate and unremarkable. Marine Engineering Teacher sections are submitted as follows: . A1: Endometrium. A2: White whorled areas. A3-A5: Left fallopian tube to include one-half of bisected fimbriae, cross-sections and cyst wall. A6: Right fallopian tube to include one-half of bisected fimbriae, and cross-sections. ([id number]) . Additional sections of leiomyoma are submitted in A7-A12. ([id number]) /MRV 01/01/2025 On license of [facility] Local . 01 Pathologist provided ICD-10: D25.9, N92.0, N80.03, N83.8, D28.2 . 01 CPT . 843695 Specimen Comment: A courtesy copy of this report has been sent to [phone] Performed at: [address] [id number] MD Quang Christopher MD Phone: [phone]
[2024-12-28] MEDS: LACTATED RINGERS 1,000 ML 42 ML IV ×2 (07:03→09:16)
[2024-12-28] MEDS: SCOPOLAMINE 1 PATCH TOP (07:34)
--- NOTE | 2024-12-28 07:44 | PM.PREOP ---
Pre-operative Note Interval Note History & Physical reviewed/Exam performed by Physician: Yes Changes to H&P: No H&P completed within 30 days and has changed as indicated here:: 12/09/24
[2024-12-28] MEDS: CEFAZOLIN 2 GM/100 ML PREMIX 100 ML IV (07:55)
--- NOTE | 2024-12-28 08:21 | SUR.OPER ---
Lithotomy on padded OR bed. [place] Pad Positioner under torso. Head on pillow, arms padded and tucked at sides. Legs secured in padded yellow fins stirrups. IV padded with 4x4's.
[2024-12-28] MEDS: BUPIVACAINE 0.5% W/ EPI (PF) 30 ML VIAL INJ (08:31)
[2024-12-28] MEDS: ROPIVACAINE 0.2% PF 2 MG/ML 10ML AMP 20 ML INJ (08:33)
[2024-12-28] MEDS: ACETAMINOPHEN IV 1,000 MG/100 ML VIAL 400 MG IV (08:45)
--- NOTE | 2024-12-28 09:44 | P.OP_ITS ---
Operative Date/Time/Diagnoses Date of procedure: 12/28/24 Time of procedure: 09:30 Pre-op diagnosis: Fibroid uterus Menorrhagia Left adnexal cyst Post-op diagnosis: same Procedure & Clinicians Procedure: Procedures Operation Date: 12/28/24 07:45 Actual Procedure Side Surgeon p Laparoscopic Supracervical Hysterectomy with bilateral salipingectomy, removal of ovarian cyst Ayde Baxter MD Indications: 49 year old with an enlarged fibroid uterus, menorrhagia and a left adnexal cyst Surgeon: Ayde Baxter Failure Analysis Engineer: Afshan Cedillo Anesthesia Type: General and Local Operative Notes Findings: 10 wk size multifibroid uterus 4cm left paratubal cyst Normal ovaries Normal right tube Normal liver and gallbladder Normal appendix Closure Type: primary Specimen(s): left tube (with paratubal cyst), right tube and uterus Applied: catheter (removed at end of the case) Estimated blood loss (mL): 75 Blood products transfused: none Procedure in detail: The patient was taken to the operating room where she was placed in the dorsal supine position. After adequate general endotracheal anesthesia was achieved, she was placed in the dorsal lithotomy position, and prepped and draped in the usual sterile fashion. A timeout was performed. A bivalve speculum was placed into the vagina and the anterior lip of the cervix grasped with a single-tooth tenaculum. The cervical os was sequentially dilated until the ZUMI uterine manipulator could pass easily into the endometrial cavity. The moistened sponge stick was also placed into the vagina. The single-tooth tenaculum was removed from the anterior lip of the cervix, and the bivalve speculum was removed from the vagina. Attention was then turned to the abdomen where 6 mL of half percent Marcaine with epinephrine were injected in the umbilical fold. A 5 mm incision was made. The Veress needle was placed into the peritoneal cavity, and its placement confirmed by aspiration and drop test. The Veress needle was removed. A 5 mm trocar was placed without difficulty and the balloon inflated. 2 other incisions were made 4 cm lateral to the umbilicus after 5 mL of half percent Marcaine with epinephrine were injected. These were 5 mm incisions. Two 5 mm trocars were placed under direct visualization. The balloons were inflated. The pelvis and abdomen were examined with the findings noted above. The right tube was grasped with an atraumatic grasper. Using the power seal, the mesosalpinx was cauterized and cut all the way down to the cornua of the uterus. The cornua of the uterus was then grasped with an atraumatic grasper. The utero-ovarian ligaments were cauterized and cut. The round ligament and broad ligament was cauterized and cut with the power seal. Hemostasis was achieved. The bladder flap was created using the power seal with cautery and cut long term across. The uterine arteries on the right side were extensively cauterized with the power seal. All of this was repeated on the patient's left side. The remainder of the bladder flap was created using the power seal, and the bladder taken down off the lower uterine segment and cervix. Using the L[place], the cervix was amputated from the uterus 2 cm above the uterosacral ligaments, after the ZUMI uterine manipulator was removed from the uterus. There was a small amount of bleeding noted from the posterior edge of the cervix and the left side of the cervix, and this was cauterized for hemostasis. 6 mL of half percent Marcaine with epinephrine were injected above the pubic symphysis. A 12 mm trocar was placed. A large Endobag was placed through the suprapubic trocar and the uterus and tubes were placed into the Endobag. The trocar was removed. The edges of the bag were brought up through the skin. The uterus was grasped with a Elia. The Jeff was placed into the endobag. The uterus was hand morcellated in approximately 15 pieces. The Endobag was removed from the peritoneal cavity. The abdomen was re-insufflated. The pelvis was copiously irrigated with warm normal saline. No bleeding was noted. 20 cc of 0.2% ropivacaine were placed over the pelvic pedicles. The instruments were removed from the abdomen. The CO2 was allowed to escape. The suprapubic incision was closed on the fascia with 0 Vicryl. Two simple interrupted sutures with 3-0 Vicryl were placed in the subcutaneous layer on the suprapubic incision. All of the incisions were closed with 4-0 Monocryl in a subcuticular fashion. The moistened sponge stick was removed from the vagina. Sponge, lap, and instrument counts were correct x-2. The patient tolerated the procedure well, was taken to PACU in stable condition. The Stark catheter was removed before leaving the operating room. Complications: none Post-operative Condition: stable Disposition: PACU Plan for aftercare: Home after recovery
[2024-12-28] MEDS: hydrOXYzine HCL 25 MG TABLET PO (10:19)
[2024-12-28] MEDS: TRAMADOL 50 MG TABLET PO ×2 (10:19→10:51)
[2024-12-28] MEDS: ONDANSETRON 4 MG/2 ML INJ IV (10:19)
[2024-12-28] MEDS: fentaNYL 100 MCG/2 ML INJ IV ×2 (11:08→11:49)
--- NOTE | 2024-12-28 11:18 | SUR.PHASEII ---
Continuous pulse ox in place. Vicente mora applied as pt c/o feeling cold. Report given to Ama.
--- NOTE | 2024-12-28 13:48 | SUR.PHASEII ---
Christiano Cardenas CRNA notified of BP 81/51 at 1315. Instructed to repeat blood pressure and notify ENERGY CONSERVATION SPECIALIST of results. Repeat BP at 1345 is as follows: 93/65 (LUE) and 87/57 (LUE), both in sitting position. Christiano at bedside to evaluate pt who is ambulating from bathroom with x1 person assist. Pt is requesting to go home and is otherwise asymptomatic. Per Christiano, okay to discharge. Pt educated on symptoms of low blood pressure, verbalized understanding. Additionally, pt has bruising/redness/possible allergic reaction present around base of anterior face/neck. Pt denies difficulty swallowing, pain, or itching around site. Per Christiano, monitor skin for increased swelling, difficulty breathing or swallowing, and call coordinator or come to ED if symptoms worsen. Pt meets criteria for discharge. Instructions reviewed with pt and . Verbalized understanding.
== END 2024-12-28 14:02 | disposition home or self-care (01) ==
PROVIDERS: PCP Family Medicine; Referring Provider Obstetrics & Gynecology; Visit Provider Obstetrics & Gynecology
PROC: 0UT94ZL Resection of Uterus, Supracervical, Percutaneous Endoscopic Approach (ICD-10-PCS; CPT 58542; principal; 2024-12-28 07:45)
DX: N92.0 Excessive and frequent menstruation with regular cycle (principal); D25.9 Leiomyoma of uterus, unspecified; N83.8 Other noninflammatory disorders of ovary, fallopian tube and broad ligament; N83.202 Unspecified ovarian cyst, left side; N80.03 Adenomyosis of the uterus
CPT/HCPCS: 58542; A9270; J0131; J0690; J1100; J1885; J2250; J2405; J2704; J2795; J3010; J3475; J3490